=== PATIENT | female | born 1940 | race Caucasian/White ===

== ENCOUNTER 2017-09-06 09:13 | Emergency (ER) | payer OTHER ==
[2017-09-06] MEDS ORDERED: ACETAMINOPHEN 325 MG TABLET (FP) PO ONE (09:33)
--- NOTE | 2017-09-06 09:33 | PDOC ---
History of Present Illness - General Chief Complaint: Injury Stated Complaint: FELL, STRUCK HEAD, LEFT SHOULDER, ARM Time Seen by Provider: 09/06/17 09:17 History Source: Patient, Family Exam Limitations: No Limitations - History of Present Illness Initial Comments: 09/06/17 09:23 77 yo F c/ pmh HTN, DM p/w mechanical fall down 3 steps. The patient was well and in her usual state of health. Yesterday, was finishing putting up her [place] trees. Was vaccuuming and was walking up the stairs. She was up 3 steps, when she fell backwards. Hit her left forehead on the door, but no LOC. No headache, nausea, vomiting, or complaints of neurological deficits. Pt complains of left arm pain, worse with movements. This occurred yesterday. Pt was able to get up, turn off the vaccuum furniture cleaner and went to bed. This morning, patient called her family, who then brought the pt to the ED. Past History - Past Medical History Allergies/Adverse Reactions: Allergies Allergy/AdvReac Type Severity Reaction Status Date / Time No Known Allergies Allergy Unverified 08/14/14 15:26 Home Medications: Ambulatory Orders Metformin HCl [Glucophage -] 500 mg PO BID 08/14/14 Aspirin [ASA -] 650 mg PO ONCE 09/06/17 Cholecalciferol (Vitamin D3) [Vitamin D3 -] 1,000 unit PO DAILY 09/06/17 Lisinopril 10 mg PO DAILY 09/06/17 Multivit-Min/Iron/Folic/Lutein [Centrum Silver Women Tablet] 1 each PO DAILY 01/18 Naproxen [Naprosyn -] 500 mg PO BID PRN #20 tablet 09/06/17 Diabetes: Yes - Suicide/Smoking/Psychosocial Hx Smoking History: Never smoked Review of Systems - Review of Systems Able to Perform ROS?: Yes Comments:: 09/06/17 09:26 GENERAL/CONSTITUTIONAL: No fever, weakness. HEAD, EYES, EARS, NOSE AND THROAT: No change in vision. No ear pain or discharge. No sore throat. + Abrasion to left forehead CARDIOVASCULAR: No chest pain or shortness of breath. RESPIRATORY: No cough, wheezing, or hemoptysis. GASTROINTESTINAL: No abdominal pain, nausea, vomiting, diarrhea, or decreased PO intolerance. GENITOURINARY: No dysuria, frequency, or change in urination. MUSCULOSKELETAL: +Left arm pain. SKIN: No rash NEUROLOGIC: No headache, vertigo, loss of consciousness, or change in strength/ sensation. ENDOCRINE: No increased thirst. No abnormal weight change. HEMATOLOGIC/LYMPHATIC: No anemia, easy bleeding, or history of blood clots. ALLERGIC/IMMUNOLOGIC: No hives or skin allergy. *Physical Exam - Physical Exam Comments: 09/06/17 09:56 GENERAL: Awake, alert, and fully oriented, in no acute distress. HEAD: Small 1x1 cm left forehead abrasion. EYES: PERRLA, EOMI, sclera anicteric, conjunctiva clear ENT: Auricles normal inspection, hearing grossly normal, nares patent, oropharynx clear without exudates. No c-spine tenderness. NECK: Normal ROM, supple, LUNGS: Breath sounds equal, clear to auscultation bilaterally. No wheezes, and no crackles HEART: Regular rate and rhythm, normal S1 and S2, no murmurs, rubs or gallops ABDOMEN: Soft, nontender, normoactive bowel sounds. No guarding, no rebound. No masses EXTREMITIES: Normal range of motion, no edema, except limited range of motion LUE 2/2 pain to her left shoulder. No clavicle tenderness LUE: 2+ radial pulse. Sensation and strength intact in the median/radian/ulnar/ deltoid distribution. Mild tenderness to the lateral elbow, but no gross deformity. Able to fully range the left arm. Left anterior shoulder TTP. But no gross deformity. Able to range but with pain. NEUROLOGICAL: Cranial nerves II through XII grossly intact. Normal speech, normal gait SKIN: Warm, Dry, normal turgor, no rashes or lesions noted. Medical Decision Making - Medical Decision Making 09/06/17 09:58 The patient is well-appearing. Pt taken aspirin this morning. I suspect likely bony contusion from fall. However, given age > 65 years old and taken aspirin, will obtain head CT. Left shoulder, humerus, and left elbow xray to r/o fracture. Pain control and reassess. Pt family at bedside. 09/06/17 10:31 Radiographs of her left shoulder shows impacted, displaced fracture involving the proximal left humerus. CAT scan the head demonstrates no acute findings. I had consulted Dr. Fisher who stated patient can be in a sling and follow-up in their office. Pt placed in sling. Patient will be taken by the daughter. She remains neurovascular intact. Discharge diagnosis: Fracture left humerus I discussed the physical exam findings, ancillary test results and final diagnoses with the patient. I answered all of the patient's questions. The patient was satisfied with the care received and felt comfortable with the discharge plan and treatment plan. The patient will call their primary care physician within 24 hours to arrange follow-up and will return to the Emergency Department with any new, persistant or worsening symptoms. 09/06/17 10:37 *DC/Admit/Observation/Transfer Diagnosis at time of Disposition: Left humeral fracture Qualifiers: Encounter type: initial encounter Humerus Location: proximal Fracture type: closed Fracture morphology: other fracture Fracture alignment: displaced Qualified Code(s): S42.292A - Other displaced fracture of upper end of left humerus, initial encounter for closed fracture - Discharge Dispostion Disposition: HOME Condition at time of disposition: Good Admit: No - Prescriptions Prescriptions: Naproxen [Naprosyn -] 500 mg PO BID PRN #20 tablet PRN Reason: Pain - Referrals Referrals: Todd Pappas [Primary Care Provider] - Wes Fisher MD [Staff Physician] - - Patient Instructions Printed Discharge Instructions: How to Use a Sling, DI for Shoulder Fracture Additional Instructions: You have a left proximal humerus fracture. Ice as needed. Sleep with elevation of 45 to 60 degrees. Naproxen every 12 hours as needed for pain. Please call and follow up with Dr. Fisher. - Post Discharge Activity
[2017-09-06 09:57] VITALS: BP 180/90; PULSE 83; TEMP 97.8; BMI 24.4
[2017-09-06] MEDS ORDERED: ACETAMINOPHEN 325 MG TABLET (FP) ONE (10:03)
== END 2017-09-06 10:50 | disposition home or self-care (01) ==
LOC: FER 09:13
DX: S42.292A Other displaced fracture of upper end of left humerus, initial encounter for closed fracture (principal); W10.9XXA Fall (on) (from) unspecified stairs and steps, initial encounter; Y93.89 Activity, other specified; Y92.008 Other place in unspecified non-institutional (private) residence as the place of occurrence of the external cause; E11.9 Type 2 diabetes mellitus without complications; I10 Essential (primary) hypertension; Z79.84 Long term (current) use of oral hypoglycemic drugs
CPT/HCPCS: 70450-TC; 73030-TC-LT; 73060-TC-LT; 73070-TC-LT; 99282-25